=== PATIENT | male | born 1935 | race Caucasian/White ===

== ENCOUNTER 2016-07-13 15:44 | Outpatient (CLI) | payer MEDICARE, BC | END 2016-07-13 15:45 | disposition home or self-care (01) | LOC: HPCALD 15:44 | PROVIDERS: ATTEND Family Medicine | DX: I48.2 Chronic atrial fibrillation (principal) ==

== ENCOUNTER 2016-07-25 16:01 | Outpatient (CLI) | payer MEDICARE, BC ==
[2016-07-25 16:15] LABS: Prothrombin Time 29.6 SEC (12.0-14.7)
== END 2016-07-25 16:02 | disposition home or self-care (01) ==
LOC: HPCALD 16:01
PROVIDERS: ATTEND Family Medicine
DX: I48.91 Unspecified atrial fibrillation (principal)
CPT/HCPCS: 36415; 85610

== ENCOUNTER 2016-09-17 15:02 | Outpatient (CLI) | payer MEDICARE, BC ==
[2016-09-17 15:26] LABS: Prothrombin Time 27.2 SEC (12.0-14.7)
== END 2016-09-17 15:03 | disposition home or self-care (01) ==
LOC: HPCALD 15:02
PROVIDERS: ATTEND Family Medicine
DX: I48.91 Unspecified atrial fibrillation (principal)
CPT/HCPCS: 36415; 85610

== ENCOUNTER 2016-11-01 13:52 | Outpatient (CLI) | payer MEDICARE, BC, OTHER ==
[2016-11-01 14:24] LABS: INR-International Normal Ratio 2.4; Prothrombin Time 27.4 SEC (12.0-14.7)
== END 2016-11-01 13:53 | disposition home or self-care (01) ==
LOC: HPCALD 13:52
PROVIDERS: ATTEND Family Medicine
DX: I48.91 Unspecified atrial fibrillation (principal)
CPT/HCPCS: 36415; 85610

== ENCOUNTER 2016-11-21 10:56 | Outpatient (CLI) | payer MEDICARE, BC ==
[2016-11-21 12:15] LABS: ALT (SGPT) 14 U/L (8-55); AST (SGOT) 15 U/L (5-34); Albumin 3.9 g/dL (3.4-4.8); Alkaline Phosphatase 62 U/L (40-150); Anion Gap 11 mmol/L (10-20); BUN (Urea Nitrogen) 14 mg/dL (8.4-25.7); Bilirubin, Total 0.8 mg/dL (0.2-1.2); Calc. Creatinine Clearance 0 mL/min (70-130); Calcium 8.6 mg/dL (7.8-10.44); Carbon Dioxide 27 mmol/L (23-31); Chloride 108 mmol/L (98-107); Estimated GFR-MDRD 60; Globulin 2.1 g/dL (2.4-3.5); Glucose 113 mg/dL (83-110); Sodium 142 mmol/L (136-145)
[2016-11-21 12:28] LABS: #Lymphocytes 0.9 thou/uL (1.20-3.40); #Monocytes 0.5 thou/uL (0.11-0.59); #Neutrophils 4.5 thou/uL (1.40-6.50); %Basophils 0.4 % (0.0-1.0); %Eosinophils 0.5 % (0.0-10.0); %Lymphocytes 14.7 % (21.0-51.0); %Monocytes 7.7 % (0.0-10.0); %Neutrophils 76.6 % (42.0-75.0); Hemoglobin 14.7 g/dL (14.0-18.0); Mean Corpuscular HGB CONC 33.9 g/dL (32.0-36.0); Mean Corpuscular Hemoglobin 33.3 pg (27.0-31.0); Mean Platelet Volume 8.4 fL (7.4-10.4); Platelet Count 133 thou/uL (130-400); RBC Distribution Width 12.2 % (11.5-14.5); Red Blood Cell (RBC) Count 4.41 mill/uL (4.70-6.10); White Blood Cell (WBC) Count 5.9 thou/uL (4.8-10.8)
--- NOTE | 2016-11-21 20:42 | RAD ---
CHEST TWO VIEWS 11/21/16 Comparison is made with a 09/03/14 study. As before, the aorta is markedly dilated and tortuous, especially the ascending aorta. It may have e lori gotten a little wider in the interval. There is deviation of the trachea as it crosses the aorti c arch. A CT would best demonstrate the size and condition of the aorta. There is no vascular conges tion or edema. No pleural effusions are present. The heart is mildly enlarged but unchanged in size. There are no focal pulmonary infiltrates. IMPRESSION: 1. Mild cardiomegaly. 2. Quite dilated tortuous thoracic aorta, particularly around the ascending aorta region. See ebonie blakely. Code T POS: HOME
== END 2016-11-21 10:57 | disposition home or self-care (01) ==
LOC: BUREKG 10:56
PROVIDERS: ATTEND Family Medicine
DX: Z01.818 Encounter for other preprocedural examination (principal); I48.2 Chronic atrial fibrillation; I51.7 Cardiomegaly; I77.810 Thoracic aortic ectasia
CPT/HCPCS: 36415; 71020; 80053; 85025

== ENCOUNTER 2016-11-30 14:58 | Outpatient (CLI) | payer MEDICARE, BC ==
--- NOTE | 2016-11-30 16:53 | CT ---
CT CHEST WITH IV CONTRAST HISTORY: Abnormal chest x-ray. Tortuous thoracic aorta. FINDINGS: The thoracic aorta is tortuous. There are vascular calcifications. The ascending thoracic aorta darlene sures 5.1 cm, and the descending thoracic aorta measures 3.3 cm. No pleural or pericardial effusion s are seen. No intimal flap is noted in the well opacified thoracic aortic lumen, to suggest dissec tion. Coronary artery calcifications are present. No pneumothorax, focal areas of consolidation, o r lung masses are identified. There are degenerative changes in the spine. Upper abdominal tomogra ms demonstrate a 1.4 cm cyst in the left lobe of the liver. IMPRESSION: 1. 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 2. Coronary artery disease. POS: [facility]
== END 2016-11-30 14:59 | disposition home or self-care (01) ==
LOC: BURCT 14:58
PROVIDERS: ATTEND Family Medicine
DX: R93.8 Abnormal findings on diagnostic imaging of other specified body structures (principal); I71.2 Thoracic aortic aneurysm, without rupture; I25.10 Atherosclerotic heart disease of native coronary artery without angina pectoris
CPT/HCPCS: 71260

== ENCOUNTER 2016-12-25 10:38 | Outpatient (CLI) | payer MEDICARE ==
[2016-12-25 12:22] LABS: INR-International Normal Ratio 1.4; Prothrombin Time 17.8 SEC (12.0-14.7)
== END 2016-12-25 10:39 | disposition home or self-care (01) ==
LOC: HPCALD 10:38
PROVIDERS: ATTEND Family Medicine
DX: I48.91 Unspecified atrial fibrillation (principal)
CPT/HCPCS: 36415; 85610

== ENCOUNTER 2017-01-11 14:05 | Outpatient (CLI) | payer MEDICARE ==
[2017-01-11 14:49] LABS: INR-International Normal Ratio 2.5; Prothrombin Time 28.3 SEC (12.0-14.7)
== END 2017-01-11 14:06 | disposition home or self-care (01) ==
LOC: HPCALD 14:05
PROVIDERS: ATTEND Family Medicine
DX: I48.91 Unspecified atrial fibrillation (principal)
CPT/HCPCS: 36415; 85610

== ENCOUNTER 2017-02-20 14:08 | Outpatient (CLI) | payer MEDICARE ==
[2017-02-20 14:26] LABS: INR-International Normal Ratio 2.9; Prothrombin Time 31.8 SEC (12.0-14.7)
== END 2017-02-20 14:09 | disposition home or self-care (01) ==
LOC: HPCALD 14:08
PROVIDERS: ATTEND Family Medicine
DX: Z51.81 Encounter for therapeutic drug level monitoring (principal); I48.91 Unspecified atrial fibrillation; Z79.01 Long term (current) use of anticoagulants
CPT/HCPCS: 36415; 85610

== ENCOUNTER 2017-03-27 11:52 | Outpatient (CLI) | payer MEDICARE ==
--- NOTE | 2017-03-27 20:13 | RAD ---
LUMBAR SPINE THREE VIEWS: 03/27/17 Comparison is made with an MRI dated 10/27/15. That study suggested an acute superior end plate fract ure of L4. There is some residual irregularity here. There is some compression of the superior end plate of L1, a new finding. The age is indeterminate b ut it suggests a mild compression. Disc space narrowing is present at L4-L5 and there is mild gato listhesis of L4 on L5. Osteophytes are seen at all levels. Disc space narrowing is also prominent at L2-L3. The SI joints are symmetrical. There is some mild nonspecific distention of bowel. IMPRESSION: 1. Mild compression of the superior end plate of L1, a new finding since 2016. MRI could date w hether this is truly acute or not. It would also assess any neural impingement. 2. Minimal residual changes from the prior L4 compression. 3. Disc space narrowing most prominent at L2-L3 and L4-L5. Degenerative changes as noted elsewh ere. POS: HOME
== END 2017-03-27 11:53 | disposition home or self-care (01) ==
LOC: BURRAD 11:52
PROVIDERS: ATTEND Family Medicine
DX: M54.5 Low back pain (principal); M47.816 Spondylosis without myelopathy or radiculopathy, lumbar region; M48.06 Spinal stenosis, lumbar region
CPT/HCPCS: 72100

== ENCOUNTER 2019-04-02 07:32 | Outpatient (CLI) | payer MEDICARE ==
[2019-04-01 11:46] LABS: INR-International Normal Ratio 3.2; Prothrombin Time 32.5 SEC (12.0-14.7)
[2019-04-02] MEDS ORDERED: Iopamidol 370 76% 100 ML VIAL ONE (09:17)
--- NOTE | 2019-04-02 19:04 | CT ---
CT OF THE ABDOMEN AND PELVIS WITH CONTRAST: 04/02/19 COMPARISON: Comparison is made with an 02/19/12 CT. A moderate sized hiatal hernia is present in the lower chest. The lung bases are unremarkable except for some dependent atelectasis and a very small cyst in the right lower lobe. There are several small cystic appearing structures spread throughout the liver. They were present in 2012 and do not seem much different. The size of the liver and spleen appears normal. The pancreas a nd adrenal glands showed no acute change. The gallbladder is difficult to assess well but no obvious stones were seen in association with it. The aorta shows arteriosclerotic change and some ectasia but no focal aneurysm. The kidneys showed no obstruction. There is probably a small exophytic cyst attac hed to the lower pole of the right kidney. The bowel is unremarkable showing no distention, wall thickening or acute change. There is no free ai r or free fluid. Attention is drawn to the left flank in the lower abdominal region near the pelvis. 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 In retrospect, such was the case on the 2012 CT. There has been no dramatic change or worsening over the interval. No free air or free fluid was seen in the abdomen. CT of the pelvis shows no pelvic masses, fluid collections, or inflammatory changes. There is some mi nimal mild concentric thickening of the urinary bladder, though the prostate is not markedly enlarged . Some degenerative changes are seen throughout the spine. There is a compression fracture of the L1 vertebral body with a defect seen in the central portion of the vertebra. The appearance is more sugg estive that this is longstanding than acute. I do not believe the defect is actually a destructive le davida though it is difficult to be certain. There is a large scooped out defect in the superior end pl ate of L4 with corticated margins suggesting this too is longstanding in nature. A 2017 lumbar spine film showed that there was a slight compression of the superior end plate of L1. It has advanced furt her over time. Slight anterolisthesis of L4 on L5 is noted but this was present before. IMPRESSION: 1. Moderate sized hiatal hernia. 2. Several cystic lesions of the liver, stable. 3. Compression of L1 has advanced further and now there is a bony defect in the central portion of the vertebral body. Probably related to the prior fracture rather than a bony destructive lesion, though it is difficult to be 100% sure. 4. Further compression of portions of the superior end plate of L4, presumably progression of th e prior fracture. POS: HOME
== END 2019-04-02 07:33 | disposition home or self-care (01) ==
LOC: BURCT 07:32
PROVIDERS: ATTEND Family Medicine
DX: K43.9 Ventral hernia without obstruction or gangrene (principal); K44.9 Diaphragmatic hernia without obstruction or gangrene; K76.89 Other specified diseases of liver
CPT/HCPCS: 36415; 74160; 74177; 82565; 85610; Q9967

== ENCOUNTER 2019-08-07 12:17 | Outpatient (CLI) | payer MEDICARE ==
--- NOTE | 2019-08-07 19:55 | RAD ---
LEFT CLAVICLE TWO VIEWS: 08/07/19 There is a fracture at the distal end of the clavicle near the AC joint. This was not present on a CT of the chest. The glenohumeral joint was unremarkable and there is no dislocation here. The visible adjacent ribs were unremarkable. IMPRESSION: Fracture at the distal end of the clavicle. POS: HOME
--- NOTE | 2019-08-07 19:56 | RAD ---
LEFT SHOULDER THREE VIEWS: 08/07/19 There is no fracture or dislocation involving the humeral head, but there is a fracture at the distal end of the clavicle. The AC joint does not seem wide. The visible adjacent ribs appeared intact, as did the scapula. The patient's aorta is calcified and quite dilated. IMPRESSION: Fracture at the distal end of the clavicle. POS: HOME
== END 2019-08-07 12:18 | disposition home or self-care (01) ==
LOC: BURRAD 12:17
PROVIDERS: ATTEND Family Medicine
DX: M25.512 Pain in left shoulder (principal); S42.032A Displaced fracture of lateral end of left clavicle, initial encounter for closed fracture

== ENCOUNTER 2020-03-10 09:34 | Emergency (ER) | payer MEDICARE ==
[2020-03-10 10:28] LABS: #Lymphocytes 0.5 thou/uL (1.20-3.40); #Monocytes 0.4 thou/uL (0.11-0.59); #Neutrophils 3.1 thou/uL (1.40-6.50); %Basophils 0.6 % (0.0-1.0); %Eosinophils 0.7 % (0.0-10.0); %Monocytes 9.6 % (0.0-10.0); %Neutrophils 77.1 % (42.0-75.0); Hemoglobin 12.4 g/dL (14.0-18.0); Mean Corpuscular HGB CONC 32.9 g/dL (32.0-36.0); Mean Corpuscular Hemoglobin 32.9 pg (27.0-31.0); Mean Platelet Volume 9.6 fL (7.4-10.4); Platelet Count 121 thou/uL (130-400); RBC Distribution Width 12.1 % (11.5-14.5); Red Blood Cell (RBC) Count 3.78 mill/uL (4.70-6.10)
[2020-03-10 10:32] LABS: INR-International Normal Ratio 2.5; Prothrombin Time 27.1 sec (12.0-14.7)
[2020-03-10 10:41] LABS: ALT (SGPT) 16 U/L (8-55); AST (SGOT) 14 U/L (5-34); Albumin 3.7 g/dL (3.4-4.8); Alkaline Phosphatase 60 U/L (40-110); Anion Gap 12 mmol/L (10-20); BUN (Urea Nitrogen) 24 mg/dL (8.4-25.7); Bilirubin, Total 0.9 mg/dL (0.2-1.2); Calc. Creatinine Clearance 0 mL/min (70-130); Calcium 8.3 mg/dL (7.8-10.44); Carbon Dioxide 26 mmol/L (23-31); Chloride 108 mmol/L (98-107); Estimated GFR-MDRD 59; Glucose 107 mg/dL (83-110); Protein, Total 5.7 g/dL (5.8-8.1); Sodium 142 mmol/L (136-145)
== END 2020-03-10 11:15 | disposition home or self-care (01) ==
LOC: BURERS 09:34
DX: Z00.00 Encounter for general adult medical examination without abnormal findings (principal); I48.91 Unspecified atrial fibrillation; I49.9 Cardiac arrhythmia, unspecified; N40.0 Benign prostatic hyperplasia without lower urinary tract symptoms; Z79.899 Other long term (current) drug therapy; Z79.01 Long term (current) use of anticoagulants
CPT/HCPCS: 80053; 82274; 83605; 85025; 85610; 99283

== ENCOUNTER 2021-02-08 09:03 | Emergency (ER) | payer MEDICARE ==
[2021-02-08 09:30] LABS: #Eosinphils 0.1 thou/uL (0.0-0.7); #Lymphocytes 0.9 thou/uL (1.20-3.40); #Monocytes 0.5 thou/uL (0.11-0.59); #Neutrophils 5.3 thou/uL (1.40-6.50); %Basophils 0.6 % (0.0-1.0); %Eosinophils 0.8 % (0.0-10.0); %Lymphocytes 12.9 % (21.0-51.0); %Neutrophils 77.8 % (42.0-75.0); Hemoglobin 14.1 g/dL (14.0-18.0); Mean Corpuscular HGB CONC 33.2 g/dL (32.0-36.0); Mean Corpuscular Hemoglobin 31.7 pg (27.0-31.0); Mean Corpuscular Volume 95.7 fL (78.0-98.0); Mean Platelet Volume 9.2 fL (7.4-10.4); Platelet Count 161 thou/uL (130-400); RBC Distribution Width 12.4 % (11.5-14.5); Red Blood Cell (RBC) Count 4.45 mill/uL (4.70-6.10); White Blood Cell (WBC) Count 6.8 thou/uL (4.8-10.8)
[2021-02-08 09:32] LABS: Bilirubin Negative (Negative); Blood, Urine Trace (Negative); Clarity Clear (Clear); Glucose, Urine (Dipstick) Negative (Negative); Ketone, Urine Negative (Negative); Leukocyte Negative (Negative); Nitrite Negative (Negative); Protein, Urine (Dipstick) Negative (Neg-Trace); Specific Gravity, Urine 1.025 (1.005-1.030); Urobilinogen 0.2 mg/dL (Less than 2)
[2021-02-08 09:34] LABS: Bacteria/HPF None Seen HPF (None Seen); RBC/HPF 0-3 HPF (0-3); Squamous Epithelial 0-3 HPF (0-3); WBC/HPF None Seen HPF (0-3)
[2021-02-08 09:45] LABS: ALT (SGPT) 14 U/L (8-55); AST (SGOT) 18 U/L (5-34); Albumin 3.8 g/dL (3.4-4.8); Alkaline Phosphatase 83 U/L (40-110); Anion Gap 11 mmol/L (10-20); BUN (Urea Nitrogen) 16 mg/dL (8.4-25.7); Bilirubin, Total 1.2 mg/dL (0.2-1.2); Calc. Creatinine Clearance 0 mL/min (70-130); Calcium 8.7 mg/dL (7.8-10.44); Carbon Dioxide 28 mmol/L (23-31); Chloride 104 mmol/L (98-107); Globulin 2.7 g/dL (2.4-3.5); Glucose 108 mg/dL (83-110); Lipase 9 U/L (8-78); Potassium 4.3 mmol/L (3.5-5.1); Protein, Total 6.5 g/dL (5.8-8.1); Sodium 139 mmol/L (136-145)
[2021-02-08] MEDS ORDERED: Iopamidol 370 76% 100 ML VIAL ONE (10:32)
== END 2021-02-08 16:24 | disposition short-term general hospital (02) ==
LOC: BURERS 09:03
DX: K56.609 Unspecified intestinal obstruction, unspecified as to partial versus complete obstruction (principal)
CPT/HCPCS: 71045; 74177; 80053; 81003; 81015; 83605; 83690; 84484; 85025; 93005; 94760; Q9967

== ENCOUNTER 2021-07-24 13:23 | Emergency (ER) | payer MEDICARE ==
[2021-07-24] MEDS ORDERED: Lidocaine 1% PF 5 ML VIAL ONE (14:07)
[2021-07-24] MEDS ORDERED: Boostrix 0.5 ML (Tdap) VIAL ONE (14:08)
[2021-07-24] MEDS ORDERED: Bacitracin 1 PK ONE (14:09)
== END 2021-07-24 14:45 | disposition home or self-care (01) ==
LOC: BURERS 13:23
DX: S61.212A Laceration without foreign body of right middle finger without damage to nail, initial encounter (principal); I48.91 Unspecified atrial fibrillation; Z79.01 Long term (current) use of anticoagulants; Z79.899 Other long term (current) drug therapy; W26.0XXA Contact with knife, initial encounter
CPT/HCPCS: 12001; 90471; 90715